=== PATIENT | female | born 1940 ===

== ENCOUNTER 2018-03-22 10:57 | Outpatient (CLI) | payer OTHER | END 2018-03-22 11:15 | disposition home or self-care (01) | LOC: OFIC 805 10:57 | DX: J32.8 Other chronic sinusitis (principal); J30.89 Other allergic rhinitis; K21.9 Gastro-esophageal reflux disease without esophagitis; H61.21 Impacted cerumen, right ear; R42 Dizziness and giddiness; H90.3 Sensorineural hearing loss, bilateral ==

== ENCOUNTER 2018-07-02 10:59 | Outpatient (CLI) | payer OTHER ==
[~2018-07-02] VITALS: Ht 152.4 cm; Wt 63.0 kg
== END 2018-07-02 11:20 | disposition home or self-care (01) ==
LOC: OFIC 805 10:59
DX: H81.12 Benign paroxysmal vertigo, left ear (principal); E04.1 Nontoxic single thyroid nodule

== ENCOUNTER 2018-07-16 08:21 | Outpatient (CLI) | payer OTHER | END 2018-07-16 08:31 | disposition home or self-care (01) | LOC: SONOGRAMA 08:21 | DX: E04.2 Nontoxic multinodular goiter (principal) ==

== ENCOUNTER 2018-08-08 11:38 | Outpatient (CLI) | payer OTHER ==
[~2018-08-08] VITALS: Ht 152.4 cm; Wt 63.0 kg
== END 2018-08-08 11:55 | disposition home or self-care (01) ==
LOC: OFIC 805 11:38
DX: E04.1 Nontoxic single thyroid nodule (principal); H91.8X3 Other specified hearing loss, bilateral

== ENCOUNTER 2018-11-09 11:07 | Outpatient (CLI) | payer OTHER ==
[~2018-11-09] VITALS: Ht 152.4 cm; Wt 63.0 kg
== END 2018-11-09 11:20 | disposition home or self-care (01) ==
LOC: OFIC 805 11:07
DX: J30.89 Other allergic rhinitis (principal); E04.1 Nontoxic single thyroid nodule

== ENCOUNTER 2019-03-13 11:47 | Outpatient (CLI) | payer OTHER ==
[~2019-03-13] VITALS: Ht 152.4 cm; Wt 64.4 kg
== END 2019-03-13 12:00 | disposition home or self-care (01) ==
LOC: OFIC 805 11:47
DX: J30.89 Other allergic rhinitis (principal); E04.1 Nontoxic single thyroid nodule

== ENCOUNTER 2020-09-14 11:33 | Outpatient (CLI) | payer OTHER | END 2020-09-14 12:15 | disposition home or self-care (01) | LOC: OFIC 805 11:33 | PROVIDERS: ATTEND Otolaryngology | DX: E04.1 Nontoxic single thyroid nodule (principal); R42 Dizziness and giddiness; J30.89 Other allergic rhinitis; K21.00 Gastro-esophageal reflux disease with esophagitis, without bleeding ==